=== PATIENT | male | born 1960 | race African-American/Black ===

== ENCOUNTER 2020-05-11 14:39 | Emergency (ER) | payer OTHER ==
[~2020-05-11] VITALS: Ht 193 cm; Wt 108.9 kg
[2020-05-11 14:57] VITALS: BP 145/77
--- NOTE | 2020-05-11 14:57 | NUR ---
ED Nurse Note: Pt walked in from home due to SOB x 2 days. O2 98% in room air. Denies CP/ cough. No fever. AAOx4, verbally responsive.
--- NOTE | 2020-05-11 15:39 | Emergency Room Report ---
History of Present Illness General Chief Complaint: Dyspnea/Respdistress Source: Patient Present Illness HPI 59-year-old male with no significant past medical history to ED due to shortness of breath. Patient reports that he does not have any shortness of breath and appears to be under the influence of an unknown substance. Appears to be stable with stable vital signs. Patient reports that a person named" Shweta" sent home due to shortness of breath. Chest x-ray appears within normal limits. I received a call letter from Dr. Hernandez asking about the patient and Dr. Hernandez agreed that since the patient was stable, ambulatory, and responsive patient to be discharged. Chest x-ray appears to be within normal limits. Patient denies being in any distress. 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 COVID-19 Screening: Negative COVID-19 COVID-19 Testing Source: 3 days ago Patient History Past Medical History: see triage record Past Surgical History: none Pertinent Family History: none Immunizations: UTD Reviewed Nursing Documentation: PMH: Agreed; PSxH: Agreed Nursing Documentation-PMH Past Medical History: No Stated History Review of Systems All Other Systems: negative except mentioned in HPI Physical Exam Vital Signs Date Time Temp Pulse Resp B/P (MAP) Pulse Ox O2 Delivery O2 Flow Rate FiO2 05/11/20 14:53 97.3 62 18 98 Room Air 05/11/20 14:57 145/77 Sp02 EP Interpretation: reviewed, normal General Appearance: no apparent distress, alert, GCS 15, non-toxic Head: normocephalic, atraumatic Eyes: bilateral eye normal inspection, bilateral eye PERRL ENT: hearing grossly normal, no angioedema, normal voice Neck: full range of motion, supple/symm/no masses Respiratory: no respiratory distress, no retraction, no accessory muscle use, speaking full sentences Cardiovascular #1: regular rate, rhythm, no edema Gastrointestinal: soft, non-distended Musculoskeletal: back normal, gait/station normal Neurologic: alert, motor strength/tone normal, oriented, oriented x3, sensory intact, responsive, speech normal Psychiatric: judgement/insight normal, memory normal, mood/affect normal, no suicidal/homicidal ideation Skin: no rash Lymphatic: no adenopathy Medical Decision Making PA Attestation All my diagnosis and treatment plans were reviewed ad discussed with my supervising physician Dr. Tyson Diagnostic Impression: Primary Impression: Behavioral disorder ER Course 59-year-old male with no significant past medical history to ED due to shortness of breath. Patient reports that he does not have any shortness of breath and appears to be under the influence of an unknown substance. Appears to be stable with stable vital signs. Patient reports that a person named" Shweta" sent home due to shortness of breath. Chest x-ray appears within normal limits. I received a call letter from Dr. Hernandez asking about the patient and Dr. Hernandez agreed that since the patient was stable, ambulatory, and responsive patient to be discharged. Chest x-ray appears to be within normal limits. Patient denies being in any distress. 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 is afebrile H&PE are most consistent with behavioral complaint ORDERS: Chest x-ray ED INTERVENTIONS: None required at this time. Patient was evaluated in the context of the global COVID-19 pandemic, which necessitated consideration that the patient might be at risk for infection with the SARS-COV-2 virus that causes COVID-19. Institutional protocols and algorithms that pertain to the evaluation of patients at risk for COVID-19 are in a state of rapid change based on information relieved by multiple regulatory bodies including the CDC and the federal and state organizations. These policies and algorithms were followed during the patient's care in the ED. DISCHARGE: At this time pt. is stable for d/c to home. Will provide printed patient care instructions, and any necessary prescriptions. Care plan and follow up instructions have been discussed with the patient prior to discharge. Patient was discharged, stable at time of discharge, advised to follow primary care provider, worsening symptoms return to the emergency room. Chest X-Ray Diagnostic Results Chest X-Ray Diagnostic Results : Chest X-Ray Ordered: Yes # of Views/Limited/Complete: 1 View Indication: Shortness of Breath EP Interpretation: Yes PA Xray: Interpretation reviewed, by supervising MD, and agrees with findings. Interpretation: no consolidation, no effusion, no pneumothorax Impression: No acute disease Electronically Signed by: Kirk Choudhury PA-C Last Vital Signs Date Time Temp Pulse Resp B/P (MAP) Pulse Ox O2 Delivery O2 Flow Rate FiO2 05/11/20 14:57 62 18 Room Air 05/11/20 14:57 97.3 145/77 98 Disposition: HOME, SELF-CARE Condition: Stable Scripts No Active Prescriptions or Reported Meds Patient Instructions: Shortness of Breath Additional Instructions: At this time you are cleared to be discharged as your chest x-ray is within normal limits and you denies any shortness of breath or any symptoms. If any new symptoms return to emergency room Kirk Maldonado May 11, 2020 15:39
[2020-05-11 15:44] VITALS: BP 135/78
--- NOTE | 2020-05-11 15:44 | NUR ---
ED Nurse Note: Pt cleared by ERPA for discharge. DC instructions/prescription was given and explained to pt and verbalized understanding of teachings. All medical deviecs such as ID band removed. Pt is AAO x4, ambulatory and left with all personal belongings.
--- NOTE | 2020-05-11 16:38 | Diagnostic Imaging Report ---
Indication: Shortness of breath Technique: One view of the chest Comparison: none Findings: Heart is enlarged. Mild indistinctness to the bronchovascular markings and peripheral linear opacities suggest mild pulmonary interstitial edema. No focal airspace consolidation. No effusion. Impression: Cardiomegaly Suspect mild interstitial edema
== END 2020-05-11 15:44 | disposition home or self-care (01) ==
LOC: EMR 15:35
DX: F91.9 Conduct disorder, unspecified (principal)
CPT/HCPCS: 71045; Z7502; 99283